=== PATIENT | male | born 1990 | race Hispanic/Latino ===

== ENCOUNTER 2017-07-31 11:18 | Emergency (ER) | payer BC ==
--- OUTSIDE RECORDS SUMMARY | 2017-07-31 11:20 | XMS REPORT ---
:1990 Author Care Team Providers Name Role Phone Jeferson Archuleta Primary Care Provider Unavailable Allergies Code Code System Name Reaction Severity Status Onset NKDA Medications No Medications Reported Notes: No medications reported by patient on 07/03/2017 Problems Name Status Onset Date Source Obstructive Sleep Apnea Syndrome Active 07/03/2017 Procedures Notes: Patient indicated no previous surgeries on (07/03/2017) Lab Results None recorded. Past Encounters 07/03/2017 Polyp of Gallbladder; Liver Mass; Body Mass Index 40+ - Severely Obese Jeferson Jimenes MD: [id number] [place] [id number], Ph. Social History Smoking Status Light Tobacco Smoker (2 PPW) Vaccine List None recorded. Plan of Care Reminders Provider Appointments None recorded. Lab None recorded. Referral None recorded. Procedures None recorded. Surgeries None recorded. Imaging None recorded. Vitals Height Weight BMI Blood Pressure 5 ft 9 in 295 lbs 43.6 kg/m2 126/90 mm[Hg]
[2017-07-31 12:05] LABS: Bicarbonate 30 mEq/L (21-31); Glucose Level 113 mg/dL (65-120); Lipase 19 U/L (22-51); Potassium 3.7 mEq/L (3.6-5.0); Sodium Level 136 mEq/L (135-145)
[2017-07-31 12:11] LABS: ALT/SGPT 66 IU/L (10-60); AST/SGOT 28 IU/L (10-42); Albumin 3.9 g/dL (3.2-5.5); Alkaline Phosphatase 47 IU/L (42-121); Amylase Level 57 U/L (28-100); BUN Blood Urea Nitrogen 10 mg/dL (6-20); Bilirubin Direct 0.3 mg/dL (0-0.2); Bilirubin Total 1.2 mg/dL (0.3-1.2)
[2017-07-31 12:12] LABS: Absolute Lymphocytes (CBC) 1.9 K/uL (0.7-4.9); Absolute Monocytes 0.7 K/uL (0.1-1.3); Basophils % 0.7 % (0-1.3); Eosinophils % 2.8 % (0-4.4); Hematocrit 48.2 % (39.6-49.0); Lymphocytes % 18.6 % (15.3-44.8); MCH 28.3 pg (27.0-35.0); MCV 87.1 fL (80-100); MPV 10.5 fL (7.6-11.3); Monocytes % 7.4 % (3.3-12.3); RBC Red Blood Cell Count 5.54 M/uL (4.33-5.43)
--- NOTE | 2017-07-31 12:33 | RAD REPORT ---
EXAM DESCRIPTION: US - Abdomen Exam Limited - 07/31/2017 11:53 am CLINICAL HISTORY: Abdominal pain. COMPARISON: 09/11/2016 FINDINGS: The gallbladder demonstrates several shadowing gallstones. No pericholecystic fluid or gal lbladder wall thickening. The common bile duct is normal measuring 3 mm. The liver demonstrates diffuse fatty infiltration with vague hypoechoic lesions present similar to co mparative study and nonspecific. IMPRESSION: Cholelithiasis is noted without findings of acute cholecystitis. Fatty liver with hypoechoic liver lesions as detailed. Cross-sectional imaging of the liver can be ob tained for further assessment if clinically indicated.
[2017-07-31] MEDS ORDERED: FENTANYL CITR 100 MCG/2 ML ONE (13:17)
--- NOTE | 2017-07-31 13:18 | ER ---
Nurse's Notes [facility] Name: Osmani Gant Age: 27 yrs Sex: Male : 1990 Arrival Date: 07/31/2017 Time: 11:30 Bed 27 Private MD: Diagnosis: Calculus of gallbladder without cholecystitis Presentation: 07/31 11:30 Presenting complaint: EMS states: pt began complaining of RUQ pain 10/10 while standing dm5 at work. Pt has a history of "gallbladder issues" but hasn't had the money to have surgery. Pt given 12.5 mg Phenergan and 25 mcg Fentanyl IV in route. Pt arrived with 18G IV to left AC. Transition of care: patient was not received from another setting of care. Onset of symptoms was July 31, 2017. Initial Sepsis Screen: Does the patient meet any 2 criteria? No. Patient's initial sepsis screen is negative. Does the patient have a suspected source of infection? No. Patient's initial sepsis screen is negative. Care prior to arrival: Medication(s) given: Phenergan, 12.5 mg, Fentanyl IV initiated. 18 GA, in the left antecubital area. 11:30 Method Of Arrival: EMS: [facility] dm5 11:30 Acuity: GEE 3 dm5 Triage Assessment: 11:30 General: Appears in no apparent distress. Behavior is drowsy, due to medication. Pain: dm5 Complains of pain in right upper quadrant Pain currently is 5 out of 10 on a pain scale. Pain began suddenly. Neuro: Level of Consciousness is alert, obeys commands, lethargic, due to medication. Oriented to person, place, time, situation. GI: Abdomen is round obese, Bowel sounds present X 4 quads. Derm: Skin is pink, warm \\T\\ dry. Historical: - Allergies: 11:37 No Known Allergies; dm5 - Home Meds: 11:37 None [Active]; dm5 - PMHx: 11:37 Hypertension; Gallbladder issues; dm5 - PSHx: 11:37 None; dm5 - Immunization history:: Adult Immunizations up to date. - Social history:: Smoking status: unknown. - Family history:: not pertinent. Screenin:23 Abuse screen: Denies threats or abuse. Denies injuries from another. Nutritional kr2 screening: No deficits noted. Tuberculosis screening: No symptoms or risk factors identified. Fall Risk IV access (20 points). Assessment: 13:22 Reassessment: Patient appears in no apparent distress at this time. Patient and/or kr2 family updated on plan of care and expected duration. Pain level reassessed. Patient is alert, oriented x 3, equal unlabored respirations, skin warm/dry/pink. States abdominal pain has decreased but he is still having pain that worsens when lying down. Medicated as ordered, see MAR. GI: Abdomen is non-distended, obese, Abd is soft X 4 quads Abdomen is tender to palpation in right upper quadrant and left upper quadrant. Vital Signs: 11:30 BP 142 / 80; Pulse 76; Resp 26; Pulse Ox 97% ; Pain 5/10; dm5 11:37 Temp 98.3(O); dm5 13:21 BP 146 / 98; Pulse 87; Resp 15; Pulse Ox 97% on R/A; kr2 ED Course: 11:30 Patient arrived in ED. dm5 11:30 Eliana Hamm MD is Attending Physician. ma2 11:33 Triage completed. dm5 11:37 Arm band placed on right wrist. Patient placed in an exam room, on a stretcher, on dm5 monitor and storage bin tender, on pulse oximetry. 11:39 Note: u/s portable. aa4 11:52 US Abdomen Limited In Process Unspecified. EDMS 11:58 Note: us done portable. aa4 12:40 Rochelle Parker, RN is Primary Nurse. dm5 12:40 Amylase, Serum Sent. dm5 13:16 Paul Jack MD is Referral Physician. ma2 13:24 Patient has correct armband on for positive identification. Bed in low position. Call kr2 light in reach. Side rails up X 1. Adult w/ patient. monitor and storage bin tender on. Pulse ox on. NIBP on. Door closed. Lights dimmed. 13:38 No provider procedures requiring assistance completed. IV discontinued, intact, kr2 bleeding controlled, No redness/swelling at site. Pressure dressing applied. 13:41 Primary Nurse role handed off by Rochelle Parker, RN ag Administered Medications: 13:21 Drug: fentaNYL (PF) 25 mcg Route: IVP; Site: left antecubital; kr2 13:39 Follow up: Response: No adverse reaction; Pain is decreased kr2 Outcome: 13:17 Discharge ordered by . lidia 13:38 Discharged to home ambulatory, with family. kr2 13:38 Condition: good 13:38 Discharge instructions given to patient, family, Instructed on discharge instructions, follow up and referral plans. medication usage, Demonstrated understanding of instructions, follow-up care, medications, Prescriptions given X 1. 13:39 Patient left the ED. kr2 13:46 Patient left the ED. ag Signatures: Dispatcher [employer] Rochelle Arellano, RN RN dm5 Meche Houston4 Lashawn Easton Karey, RN RN kr2 Eliana Hamm MD MD ma2
--- NOTE | 2017-07-31 13:18 | EDPHYS ---
Physician Documentation [facility] Name: Osmani Gant Age: 27 yrs Sex: Male : 1990 Arrival Date: 07/31/2017 Time: 11:30 Bed 27 Private MD: ED Physician Eliana Hamm HPI: 07/31 13:18 This 27 yrs old Male presents to ER via EMS with complaints of Abdominal Pain. ma2 11:39 The patient presents with abdominal pain in the right upper quadrant. Onset: The ma2 symptoms/episode began/occurred suddenly, 4 hour(s) ago. Associated signs and symptoms: Pertinent positives: nausea and vomiting, Pertinent negatives: anorexia, blood in stools, testicular pain. The symptoms are described as burning. Severity of pain: At its worst the pain was severe. The patient has experienced similar episodes in the past. Historical: - Allergies: 11:37 No Known Allergies; dm5 - Home Meds: 11:37 None [Active]; dm5 - PMHx: 11:37 Hypertension; Gallbladder issues; dm5 - PSHx: 11:37 None; dm5 - Immunization history:: Adult Immunizations up to date. - Social history:: Smoking status: unknown. - Family history:: not pertinent. ROS: 11:39 Abdomen/GI: Positive for abdominal pain, nausea and vomiting, Negative for bowel ma2 incontinence, acute changes. 11:39 All other systems are negative. 13:18 Respiratory: Negative for shortness of breath, cough, wheezing, and pleuritic chest ma2 pain. Exam: 11:39 Constitutional: This is a well developed, well nourished patient who is awake, alert, ma2 and in no acute distress. Head/Face: Normocephalic, atraumatic. Chest/axilla: Normal chest wall appearance and motion. Nontender with no deformity. No lesions are appreciated. Cardiovascular: Regular rate and rhythm with a normal S1 and S2. No gallops, murmurs, or rubs. Normal PMI, no JVD. No pulse deficits. Respiratory: Lungs have equal breath sounds bilaterally, clear to auscultation and percussion. No rales, rhonchi or wheezes noted. No increased work of breathing, no retractions or nasal flaring. 11:39 Abdomen/GI: Inspection: abdomen appears normal, Palpation: severe abdominal tenderness, in the right upper quadrant. Vital Signs: 11:30 BP 142 / 80; Pulse 76; Resp 26; Pulse Ox 97% ; Pain 5/10; dm5 11:37 Temp 98.3(O); dm5 13:21 BP 146 / 98; Pulse 87; Resp 15; Pulse Ox 97% on R/A; kr2 MDM: 11:30 Patient medically screened. ma2 11:39 Differential diagnosis: cholecystitis, Cholelithiasis, gastritis, Hepatitis, Peptic ma2 Ulcer Disease. 13:15 Data reviewed: vital signs, nurses notes. Medication response: fentanyl. ED course: ma2 pain improved, has gall bladder stone no acute pema LFT wnl . 07/31 11:33 Order name: Amylase, Serum [facility] 07/31 11:33 Order name: Basic Metabolic Panel; Complete Time: 12:59 [facility] 07/31 11:33 Order name: CBC with Diff; Complete Time: 12:59 [facility] 07/31 11:33 Order name: Creatinine for Radiology; Complete Time: 12:59 [facility] 07/31 11:33 Order name: Hepatic Function; Complete Time: 12:59 [facility] 07/31 11:33 Order name: Lipase; Complete Time: 12:59 [facility] 07/31 11:33 Order name: Urine Microscopic Only [facility] 07/31 11:33 Order name: IV Saline Lock; Complete Time: 11:38 [facility] 07/31 11:33 Order name: Labs collected and sent; Complete Time: 11:38 [facility] 07/31 11:33 Order name: Urine Dipstick-Ancillary (obtain specimen); Complete Time: 12:40 [facility] 07/31 11:33 Order name: US Abdomen Limited; Complete Time: 12:59 [facility] 07/31 11:34 Order name: Amylase Level; Complete Time: 12:59 [facility] 07/31 13:45 Order name: Urine Dipstick--Ancillary (enter results) ag Administered Medications: 13:21 Drug: fentaNYL (PF) 25 mcg Route: IVP; Site: left antecubital; kr2 13:39 Follow up: Response: No adverse reaction; Pain is decreased kr2 Disposition: 07/31/17 13:17 Discharged to Home. Impression: Calculus of gallbladder without cholecystitis. - Condition is Stable. - Discharge Instructions: Cholelithiasis. - Prescriptions for Tylenol- Codeine #3 300-30 mg Oral Tablet - take 2 tablet by ORAL route every 6 hours As needed; 30 tablet. - Medication Reconciliation Form, Thank You Letter, Antibiotic Education, Prescription Opioid Use form. - Follow up: Private Physician; When: Tomorrow; Reason: Continuance of care. Follow up: Paul Jack MD; When: Tomorrow; Reason: Continuance of care. - Problem is new. - Symptoms are unchanged. Signatures: Dispatcher [employer] Rochelle Arellano, RN RN dm5 Lashawn Easton Karey, RN RN kr2 Eliana Hamm MD MD ma2
[2017-07-31 13:50] LABS: Urine Blood 3+ (NEG); Urine Glucose NEGATIVE (NEG); Urine Protein 2+ (NEG); Urine Specific Gravity >1.030 (1.005-1.030); Urine pH 5.5 (5.0-7.0)
[2017-07-31 13:50] LABS: Urine RBC >50 /HPF (NONE SEEN)
[2017-07-31 13:51] LABS: Urine Bacteria <20 /HPF (NONE SEEN); Urine Culture Reflex Order NOT NEEDED; Urine Mucus 1+ /HPF (NONE SEEN)
== END 2017-07-31 13:46 | disposition home or self-care (01) ==
LOC: ER 11:18
DX: K80.20 Calculus of gallbladder without cholecystitis without obstruction (principal); I10 Essential (primary) hypertension
CPT/HCPCS: 36415; 76705; 80048; 80076; 81003; 81015; 82150; 83690; 85025; 96374; 99284; J3010